=== PATIENT | male | born 1955 | race Caucasian/White ===

== ENCOUNTER 2025-09-08 15:04 | Emergency (ER) | payer SELFPAY ==
[~2025-09-08] VITALS: Ht 162.6 cm; Wt 68.0 kg
[2025-09-08 15:06] VITALS: O2SAT 99
[2025-09-08 18:42] LABS: *AMPHETAMINES SCREEN URINE NEGATIVE (NEGATIVE); *BARBITURATES SCREEN URINE NEGATIVE (NEGATIVE); *BENZODIAZEPINES SCREEN URINE NEGATIVE (NEGATIVE); *COCAINE SCREEN URINE NEGATIVE (NEGATIVE); CANNABINOID URINE SCREEN PRESUMPTIVE POSITIVE (NEGATIVE); METHADONE URINE SCREEN NEGATIVE (NEGATIVE); OPIATES URINE SCREEN NEGATIVE (NEGATIVE); PHENCYCLIDINE URINE SCREEN NEGATIVE (NEGATIVE)
[2025-09-08 18:43] LABS: ECSTASY MDMA SCREEN URINE NEGATIVE (NEGATIVE)
[2025-09-08 20:20] VITALS: BP 148/88; PULSE 80; RESP 16; TEMP 36.7; O2SAT 99
== END 2025-09-08 20:22 | disposition home or self-care (01) ==
LOC: EDBD 15:04 → ER 15:04
DX: F10.129 Alcohol abuse with intoxication, unspecified (principal); I10 Essential (primary) hypertension; Z79.899 Other long term (current) drug therapy; Y90.6 Blood alcohol level of 120-199 mg/100 ml
CPT/HCPCS: 36415; 80305; 80320; 99283; G0480